=== PATIENT | female | born 1995 | race African-American/Black ===

== ENCOUNTER 2020-05-17 21:31 | Emergency (ER) | payer BC, SELFPAY ==
--- NOTE | ~2020-05-17 | XR_ITS ---
EXAMINATION: XR chest 2V EXAM DATE: 05/17/2020 22:41 INDICATION: Midsternal chest pain, worse with movement. TECHNIQUE: Frontal and lateral projections of the chest obtained and reviewed. Comparison is made to prior examination from 08/12/2018. FINDINGS: The lungs are clear. There are no pleural effusions. The cardiomediastinal silhouette is within normal limits. There is no pneumothorax suspected. The bones and soft tissues are unremarkab le. IMPRESSION: No acute cardiopulmonary findings. Reviewed, dictated and finalized at location A.
[2020-05-17 21:33] VITALS: BP 142/87; PULSE 70; RESP 16; TEMP 36.6; O2SAT 100
--- NOTE | 2020-05-17 21:35 | ECG_ITS ---
Measurements Intervals [place] Rate: 68 P: 52 NE: 152 QRS: 38 QRSD: 85 T: 39 QT: 364 QTc: 389 Interpretive Statements SINUS RHYTHM WITH SINUS ARRHYTHMIA NORMAL ECG Electronically Signed On 05-18-2020 7:01:44 CDT by Emmanuel Hilario D.O.
[2020-05-17 21:50] LABS: Basophils Percent Auto 0.4 % (0.2-1.2); Eosinophils Absolute Auto 0.1 K/mm3 (0-0.3); Eosinophils Percent Auto 0.6 % (0-4.4); Hemoglobin 12.7 g/dL (12.0-15.0); Immature Granulocyte Absolute 0.02 K/mm3 (0.00-0.031); Immature Granulocyte Percent A 0.2 % (0-0.5); Lymphocytes Percent Auto 27.9 % (18.3-44.2); Mean Corpuscular HGB Conc 32.6 g/dl (32-36); Mean Corpuscular Hemoglobin 26.3 pg (26-34); Mean Corpuscular Volume 80.7 fl (80-100); Mean Platelet Volume 10.6 fl (7.4-10.4); Monocytes Absolute Auto 0.6 K/mm3 (0.1-0.6); Monocytes Percent Auto 5.9 % (2.6-8.5); Neutrophils Absolute Auto 6.8 K/mm3 (1.3-6.7); Platelet Count Result 293 k/mm3 (150-375); Red Blood Count 4.83 M/mm3 (4.2-5.4); Red Cell Distribution Width 14.9 % (11.5-14.5); White Blood Count 10.4 K/mm3 (4.5-10.0)
[2020-05-17 21:59] LABS: Prothrombin Time 12.6 Seconds (11.1-14.7)
[2020-05-17 22:00] LABS: Partial Thromboplastin Time 34.2 SECONDS (22.3-36.8)
[2020-05-17 22:01] LABS: Anion Gap 6 mmol/L (8-16); Blood Urea Nitrogen 13 mg/dL (7-17); Calcium 9.1 mg/dL (8.4-10.2); Carbon Dioxide 27 mmol/L (22-30); Chloride 104 mmol/L (98-107); Estimated CRCL calculation 98 ml/min; Estimated Glomerular Filt Rate > 60; Glucose 113 mg/dL (65-105); Potassium 3.6 mmol/L (3.4-5.0); Sodium 137 mmol/L (137-145)
[2020-05-17 22:13] LABS: Troponin I < 0.012 ng/mL (0.000-0.034)
--- NOTE | 2020-05-17 23:20 | ED.CHESTPAIN ---
HPI - Chest Pain General Chief Complaint: Chest Pain Stated Complaint: CP Time Seen by Provider: 05/17/20 23:15 Source: RN notes reviewed History of Present Illness HPI narrative: Patient presents emergency department from home for chest pain. Patient states that approximately 830 days she experienced pain in the lower midsternal chest that did not radiate. The pain was described as a pressure and lasted approximately 30 seconds until she change positions. She states that that time it resolved. She states she had 2 other brief episodes of pain that lasted 30 seconds or less with change of position and has had no pain since then. She denies any pain at this time denies any fevers or chills shortness of breath nausea vomiting diarrhea or any other symptoms. Patient denies any chance of . Denies any use of control pills Related Data Allergies Allergy/AdvReac Type Severity Reaction Status Date / Time No Known Allergies Allergy Unknown Unverified 06/25/19 22:29 No Known Allergies Allergy Uncoded 06/25/19 22:29 Review of Systems Review of Systems: Narrative: Gen.: Denies fevers or chills Eyes: Denies eye pain or visual change ENT: Denies congestion Respiratory: Denies shortness of breath or cough CV: See HPI GI: Denies abdominal pain nausea, emesis or diarrhea denies Musculoskeletal: Denies back pain or muscle pain Neuro: Denies numbness, tingling, weakness or focal weakness Skin: Denies rash Except as documented, all other systems reviewed and negative [facility] Past Medical History Medical History (Updated 05/17/20 @ 23:23 by Sidney Galan DO) Patient denies significant medical history Social History Social History (Updated 05/17/20 @ 23:22 by Sidney Galan DO) Smoking status: Current some day smoker Exam Narrative: Exam Narrative: APPEARANCE: No acute distress, nontoxic, resting in bed EYES: EOMI HEENT: Normocephalic, atraumatic, OMM RESPIRATORY: No respiratory distress Clear to auscultation bilaterally with no rhonchi wheezing or rales. CARDIOVASCULAR: Regular rate and rhythm without murmurs rubs or gallops. ABDOMINAL: Soft, nontender, nondistended, no rebound or guarding MUSCULOSKELETAl: Moves all extremities. No clubbing, cyanosis or edema. NEURO: Awake and alert. Following commands, speech normal, no focal deficits SKIN:: Warm, dry. No rashes lesions or abrasions PSYCHIATRIC: Normal affect/mood, Course Course Emergency Course: Patient meets PERC rule criteria and no further testing needs to be performed for pulmonary embolism. Patient denies chest pain while in ED Discussed with patient results of workup and diagnosis. Discussed need for follow-up with primary care, proper use of medication, and reasons to return to the emergency department. Patient understands and agrees to current treatment plan Vital Signs Vital signs: Vital Signs Temperature 97.8 F 05/17/20 21:33 Pulse Rate 70 05/17/20 21:33 Respiratory Rate 16 05/17/20 21:33 Blood Pressure 142/87 H 05/17/20 21:33 Pulse Oximetry 100 05/17/20 21:33 Temperature 97.8 F 05/17/20 21:33 Pulse Rate 70 05/17/20 21:33 Respiratory Rate 16 05/17/20 21:33 Blood Pressure 142/87 H 05/17/20 21:33 Pulse Oximetry 100 05/17/20 21:33 MDM - Chest Pain MDM Narrative Medical decision making narrative: Patient's EKGs and labs are without significant high risk changes. Cardiac risk factors reviewed. Patient is felt likely low risk for ACS and reasonable for further risk stratification testing as an outpatient. Pain was not sudden or maximal in onset without tearing or ripping quality. No other signs of symptoms suggest aortic dissection. A low-risk Wells criteria is noted, PE is felt to be unlikely. No pneumonia seen on evaluation today. Patient is felt to be a reasonable candidate for continued evaluation as an outpatient Lab Data Result diagrams: 05/17/20 21:44 05/17/20 21:44
[2020-05-17 23:52] VITALS: BP 125/78; PULSE 66; RESP 19; O2SAT 98
[2020-05-17] MEDS: IBUPROFEN 600 MG TABLET PO (23:54)
== END 2020-05-17 23:58 | disposition home or self-care (01) ==
PROVIDERS: Emergency Provider Emergency Medicine
DX: R07.89 Other chest pain (principal); F17.200 Nicotine dependence, unspecified, uncomplicated
CPT/HCPCS: 36415; 71046; 80048; 84484; 85025; 85610; 85730; 93005; 99284; A9270

== ENCOUNTER 2022-01-02 20:16 | Emergency (ER) | payer BC, SELFPAY ==
[2022-01-02 20:57] VITALS: BP 144/97; PULSE 99; RESP 16; TEMP 36.6; O2SAT 100
--- NOTE | 2022-01-02 22:00 | PC.NURSE ---
Pt aox4 states I no longer want to wait pt walks out with no difficulty.
== END 2022-01-02 22:07 | disposition left against medical advice (07) ==
LOC: ANHED 22:05
DX: R05.9 Cough, unspecified (principal)
CPT/HCPCS: 99199

== ENCOUNTER 2022-01-05 19:29 | Emergency (ER) | payer BC, SELFPAY ==
--- NOTE | 2022-01-05 19:34 | ED.URI ---
HPI - URI/Sore Throat General Chief Complaint: Ear Stated Complaint: Dear Pain Time Seen by Provider: 01/05/22 19:35 Source: patient, RN notes reviewed and old records reviewed Mode of arrival: ambulatory Limitations: no limitations History of Present Illness HPI Narrative: 26-year-old female presents to the [facility] with complaints of left ear pain for couple of days. Started with a upper respiratory,'s runny nose, sinus pressure a couple of days ago. No treatment prior to arrival. Reports all of her and other symptoms have cleared up except for the left ear pain. Denies fevers, nausea, vomiting or diarrhea. No chest pain or abdominal pain Related Data Allergies Allergy/AdvReac Type Severity Reaction Status Date / Time No Known Allergies Allergy Unknown Verified 01/05/22 19:31 Review of Systems Review of Systems: All systems reviewed & are unremarkable except as noted in HPI and below Constitutional: Constitutional: Reports no additional constitutional complaints, Denies chills, Denies fever(s) and Denies headache(s) Eyes: Eyes: Reports no additional eye complaints ENT: Reports as per HPI, Denies vertigo, Denies dizziness, Denies headache(s), Denies nasal congestion and Denies sore throat Comments: Left ear pain Cardiovascular: Cardiovascular: Reports no additional cardiovascular complaints, Denies chest pain, Denies syncope, Denies rapid heart rate and Denies dyspnea Respiratory: Respiratory: Reports no additional respiratory complaints, Denies cough, Denies dyspnea and Denies wheezing Gastrointestinal: Gastrointestinal: Reports no additional gastrointestinal complaints, Denies abdominal pain, Denies diarrhea, Denies nausea and Denies vomiting Musculoskeletal: Musculoskeletal: Reports no additional musculoskeletal complaints and Denies numbness Integumentary/Breasts: Skin/Breast: Reports system reviewed and no additional complaints, except as docu Neurologic: Reports system reviewed and no additional complaints, except as documented, Denies vertigo, Denies dizziness, Denies syncope, Denies headache(s), Denies focal weakness and Denies numbness Psychiatric: Psychiatric: Reports no additional psychiatric complaints Allergic/Immunologic: Allergic/Immunologic: Reports no additional allergic/immunologic complaints and Denies wheezing PMFSH Past Medical History Medical History (Updated 01/05/22 @ 19:49 by Ilda Montez, [employer] [facility] [employer]) Patient denies significant medical history Social History Social History (Updated 01/05/22 @ 20:16 by JEF Flores Smoking status: Current some day smoker Living arrangements: with family Gender identity (if verbalized by the patient): Female Comments At the time of my signature, I reviewed and agree with the nursing past medical, surgical, social, and family history. There is no relevant family history pertinent to the patient complaint. Exam Const: General: cooperative, healthy appearing, no acute distress, well developed and alert Nutritional Appearance: well nourished Orientation/consciousness: patient oriented x3 Limitations: no limitations HENMT: Head: normal to inspection Ears: external ears normal, EAC's normal and TM abnormal bulging bilateral, erythematous on the left and with fluid behind the TM on the right Eyes: Conjunctivae: conjunctivae normal Pupils: Equal, round and reactive pupils present Neck: Neck: normal visual inspection, no lymphadenopathy and no meningeal signs Chest: Chest palpation & inspection: normal inspection of the chest Resp: Effort & Inspection: normal respiratory effort and no use of accessory muscles Auscultation: clear to auscultation bilaterally, no crackles, no rales, no rhonchi and no wheezes Cardio: Rate: regular rate Rhythm: regular rhythm : General: Yes no CVA tenderness Back/Spine/Pelvis: Back: no CVA tenderness Skin: General skin exam: normal color Rashes: no rashes Wounds: no wounds Neuro: General: patient orie
[2022-01-05 19:40] VITALS: BP 138/86; PULSE 100; RESP 16; TEMP 37.5; O2SAT 100
== END 2022-01-05 19:54 | disposition home or self-care (01) ==
PROVIDERS: Emergency Provider Nurse Practitioner
DX: H66.002 Acute suppurative otitis media without spontaneous rupture of ear drum, left ear (principal); F17.200 Nicotine dependence, unspecified, uncomplicated
CPT/HCPCS: 99213; G0463

== ENCOUNTER 2022-12-14 20:28 | Emergency (ER) | payer BC, SELFPAY ==
[2022-12-14 20:32] VITALS: BP 140/70; PULSE 76; RESP 18; TEMP 36.6; O2SAT 99
--- NOTE | 2022-12-14 22:45 | ED.FEMALEGU ---
HPI - Female Genitourinary General Chief complaint: Urogenital-Female <Paula Mora PA-C - Last Filed: 12/14/22 23:45> Stated complaint: flank pain, vaginal itching, blood in urine <Paula Mora PA-C - Last Filed: 12/14/22 23:45> Time Seen by Provider: 12/14/22 21:13 <Paula Mora PA-C - Last Filed: 12/14/22 23:45> History of Present Illness HPI Narrative: 27-year-old female without significant past medical history reports for evaluation of abnormal vaginal bleeding and bilateral flank pain for 2 days. Patient reports LMP 12/01-12/06 was normal. She does not have a history of metrorrhagia. States she began having light spotting 2 days ago requiring her to change her pad 2x. She reports having hematuria, however upon further questioning is unable to decipher if the blood is coming from her urethra or vagina. She is also reporting bilateral flank pain x2 days that is worse with movement and suprapubic abdominal pain. Reports the back pain as a dull ache with sharp sensations when she is sitting in a chair for a long period of time or moves certain ways. Denies fever, body aches, chills, N/V/D, CP, SOB, dysuria, urinary frequency or urgency, numbness or tingling to extremities, loss of bowel or bladder control, saddle anesthesia. Denies injury to her back. She has not taken anything for pain. <Paula Mora PA-C - Last Filed: 12/14/22 23:45> Related Data Allergies/Adverse reactions: Allergies Allergy/AdvReac Type Severity Reaction Status Date / Time No Known Allergies Allergy Unknown Verified 12/14/22 23:28 <Paula Mora PA-C - Last Filed: 12/14/22 23:45> Review of Systems Review of Systems: CONSTITUTIONAL: Denies fever, chills EYES: Denies visual changes, redness, or discharge. ENT: Denies rhinorrhea, congestion, sore throat, or otalgia. CARDIOVASCULAR: Denies chest pain, palpitations, or edema. RESPIRATORY: Denies cough or dyspnea. GASTROINTESTINAL: See HPI GENITOURINARY: Denies dysuria or hematuria. SKIN: Denies rash or itching. MUSCULOSKELETAL: See HPI NEUROLOGIC: Denies headache, numbness, dizziness, or weakness. PSYCHIATRIC: Denies anxiety or depression. <Paula Mora PA-C - Last Filed: 12/14/22 23:45> [facility] Past Medical History Medical History: Medical History Patient denies significant medical history <Paula Mora PA-C - Last Filed: 12/14/22 23:45> Social History Social History: Social History Smoking status: Current some day smoker Living arrangements: with family Gender identity (if verbalized by the patient): Female <Paula Mora PA-C - Last Filed: 12/14/22 23:45> Exam Narrative: GENERAL: Well-appearing, well-nourished, and in no acute distress. Patient resting comfortably in the exam bed. She is pleasant and conversational. HEAD: Normocephalic, atraumatic. EYES: PERRLA and EOMI. ENT: Nares clear, no rhinorrhea or epistaxis. Mucous membranes moist. Oropharynx without tonsillar hypertrophy exudate or other lesions. NECK: Supple. No adenopathy or masses. CHEST: Clear to auscultation. No respiratory distress. No wheezes rales or rhonchi HEART: Regular rate and rhythm. No murmur heard. Normal peripheral pulses. ABDOMEN: Soft, nontender, nondistended, normal active bowel sounds. No CVA tenderness bilaterally BACK: No midline vertebral tenderness, step-offs or deformities. No tenderness to paraspinous muscles. Full range of motion of back. Pain exacerbates with left and right rotation. : No lesions or rashes to external genitalia, vagina or cervix. There is a scant amount of blood and white, cottage cheeselike discharge in the vaginal vault. No CMT. No masses palpated on bimanual exam. No tenderness over adnexa with palpation. EXTREMITIES: Normal range of motion. No edema. SKIN: Warm, dry, no rash. NEURO
[2022-12-14 22:51] VITALS: BP 134/88; PULSE 70; RESP 16; O2SAT 99
[2022-12-14 22:55] VITALS: BP 118/64; PULSE 100; RESP 16; O2SAT 99
[2022-12-14 23:00] LABS: Appearance Urine Clear (Clear); Bacteria Urine None Seen /hpf; Bilirubin Urine Negative (Negative); Blood Urine Negative (Negative); Color Urine Yellow (Yellow); Glucose Urine UA Negative (Negative); Ketones Urine Negative (Negative); Leukocyte Esterase Ur Trace LEU/UL (Negative); Nitrate Urine Negative (Negative); Non Pathogenic Casts 0-2; Protein Urine Negative (Negative); RBC Urine 0-2 /hpf (0-2); Specific Grav Ur 1.021 (1.001-1.035); Squamous Epithelial Cell Urine None seen /hpf (Few); WBC Urine 0-5 /hpf; pH Urine 6.5 (5.0-9.0)
[2022-12-14 23:12] LABS: Add Urine Microscopic? YES
[2022-12-14] MEDS: methocarbamoL 500 MG TABLET PO (23:28)
[2022-12-14] MEDS: IBUPROFEN 600 MG TABLET PO (23:28)
[2022-12-14 23:54] VITALS: BP 118/62; PULSE 68; RESP 16; O2SAT 100
== END 2022-12-14 23:55 | disposition home or self-care (01) ==
PROVIDERS: Emergency Provider Physician Assistant
DX: B37.31 Acute candidiasis of vulva and vagina (principal); M54.9 Dorsalgia, unspecified; N93.9 Abnormal uterine and vaginal bleeding, unspecified; Z20.2 Contact with and (suspected) exposure to infections with a predominantly sexual mode of transmission; F17.200 Nicotine dependence, unspecified, uncomplicated
CPT/HCPCS: 81001; 81025; 87070; 87491; 87591; 87808; 99284; A9270